=== PATIENT | female | born 1960 | race Caucasian/White ===

== ENCOUNTER 2016-10-31 09:06 | Emergency (ER) | payer OTHER, MEDICAID ==
[~2016-10-31] VITALS: Ht 152.4 cm; Wt 63.5 kg
[~2016-10-31 09:06] MED LIST: ALBUTEROL-200 PUFFS/ IH; AMLODIPINE5 M1 PO; ASPIRIN 81MG TA81 MG PO; BACTRIM DS 8001 TAB PO; CELEXA20 MG PO; CLONIDINE 0.2M0.2 MG PO; DARVOCET-N 1001 EACH PO; FIORICET 325 MG1 TAB PO; FLEXERIL10 MG PO; HYDROCHLOROTHIA25 M1 PO; HYDROXYZINE50 MG PO; KEFLEX 500MG.500 MG PO; LORTAB 5/500 501 TAB PO; LORTAB 500 MG-71 TAB PO; MEDROL 4MG. DOSE4 MG PO; NAPROSYN 500MG500 MG PO; NAPROSYN500 M1 PO; NORCO 325 MG-51 TAB PO; PERCOCET 325 MG1 TA3 PO; PERCOCET 325 MG1 TA4 PO; PREDNISONE 20MG20 MG PO; PROTONIX 40MG T40 MG PO; ROBAXIN-750750 MG PO; SEPTRA DS 800 M1 TAB PO; SIMVASTATIN10 MG PO; SIMVASTATIN20 MG PO; SIMVASTATIN40 MG PO; SYNTHROID 0.0.125 MG PO; TESSALON PERLE100 M1 PO; TESSALON PERLE100 MG PO; VALIUM10 MG PO; VIBRAMYCIN 100100 MG PO; VICODIN 5/500 T1 TAB PO; VOLTAREN75 MG PO; XANAX 1MG TABLET1 MG PO; ZANAFLEX 2MG TAB2 MG PO; ZANAFLEX4 MG PO; ZITHROMAX Z PA250 MG PO; ZOFRAN ODT4 MG PO
[2016-10-31 09:10] VITALS: BP 140/85
--- NOTE | 2016-10-31 09:25 | Emergency Room Report ---
History of Present Illness Time Seen by MD Campbell Presenting Problem in Triage Pt arrived:Walked Presenting Problem:NEEDS MEDICAL CLEARANCE FOR [facility] Onset of symptoms date/time:10/31/16 or onset unknown for: Treatment Prior to Arrival: BLIND EYELETTER Provided by: Sepsis Risk Assessment: Temp: 98.8 B/P: 140/85 MAP: 103 Pulse: 84 Resp: 20 Recent fever? N Clinical Suspician of Infection? N Mental Status: 1 - Regular (Normal Baseline) Sepsis Risk:Low Sepsis Risk Have you (or family members/close friends) recently traveled outside the [place]? N If Yes, where/when: Have you had exposure to infectious disease within the past month? N TB? Other? Specify: Source patient, RN notes reviewed, police, old records Exam Limitations no limitations Comment pt reports using heroin this am and is in police custody - she has no current c/ o Cardiac Chest Pain Chest pain indicative of cardiac No Timing/Duration this morning Severity moderate ALLERGIES Coded Allergies: codeine (Intermediate, I-ITCHING 03/10/15) tramadol (Intermediate, I-ITCHING 03/10/15) Home Medications Active Scripts Ondansetron (Zofran 4MG Odt) 4 MG PO Q6HP PRN NAUSEA AND VOMITING #10 ODT Ref 1 Prov: 05/30/15 OXYCODONE 7.5MG/[id number] (Oxycodon-Acetaminophen 7.5-325) 1 TAB PO QID PRN pain #120 TAB Prov: 06/27/15 Reported Medications Amlodipine Besylate (Amlodipine) 5 MG PO DAILY Levothyroxine Sodium (Synthroid 0.125MG) 0.125 MG PO DAILY Albuterol (Albuterol-Hfa Inhaler) 2 PUFFS IH PRN #1 INH Tizanidine Hydrochloride (Zanaflex 2MG Tab) 4 MG PO DAILY History Medical History General CAD? No Angina: Yes [place]: No Hypertension? Yes Hyperlipidemia? Yes CHF? No DVT? No PE? No COPD? Yes Asthma? No Anemia? No GERD? No Gastric ulcers? No GI Bleed? No Hernia? No Thyroid Problems? Yes Hypothyroidism? Yes CVA? No Seizures? No Diabetes? No End Stage Renal Disease? No UTI? No Stones? No BPH? No GB Disease: No Nephritic Syndrome? No Asplenia? No Hepatitis? No Sickle Cell Disease? No Arthritis? Yes Migraines? No Cataracts? Yes Glaucoma? No MRSA? No HIV? No TB? No Anxiety? No Depression? No Cancer? 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 Respiratory denies cough, denies shortness of breath Cardiovascular denies chest pain, denies syncope Gastrointestinal denies abdominal pain, denies diarrhea, denies vomiting Genitourinary denies: dysuria, frequency, hesitancy, hematuria. Musculoskeletal denies back pain, denies joint pain, denies joint swelling, denies neck pain Skin denies rash Psychiatric/Neurological denies headache, denies seizure Physical Exam Vital Signs Vital Signs Date Time Temp Pulse Resp B/P Pulse O2 O2 Flow FiO2 Ox Delivery Rate 10/31 0910 98.8 84 20 140/85 97 - WBC >12,000 or <4,000 or 10% bands? 2 or more SIRS Criteria Met? B/P:140/85 MAP:103 Creatinine >2.0? UA output<0.5ml/kg/hr for 2 hrs? Platelet count >100,000? Lactate >2.0mmol/1? INR >1.2 or PTT > than 60 sec? Evidence of Organ Dysfunction? Provider documented clinical suspician of infection? N Sepsis Criteria Count: 1 Sepsis Risk: Low Sepsis Risk General Appearance no apparent distress Eye Exam - bilateral eye PERRL, bilateral eye EOMI Ear, Nose, Throat normal ENT inspection Neck supple Respiratory Status No: respiratory distress. Lung Sounds bilateral: lungs clear. 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 No Departure Departure Time of Disposition 919 Disposition DC Home or Self Care(routine) Clinical Impression Primary Impression: Heroin use Secondary Impressions: Medical clearance for incarceration Condition STABLE Patient Instructions DI for Drug Abuse and Drug Addiction Additional Instructions see pcp for follow up Discharge Counseling Counseled pt/family regarding diagnosis, follow up needs ED Critical Care Critical Care No at 0924
--- NOTE | 2016-10-31 09:25 | Emergency Room Report ---
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 N Clinical Suspician of Infection? N Mental Status: 1 - Regular (Normal Baseline) Sepsis Risk:Low Sepsis Risk Have you (or family members/close friends) recently traveled outside the [place]? N If Yes, where/when: Have you had exposure to infectious disease within the past month? N TB? Other? Specify: Source patient, RN notes reviewed, police, old records Exam Limitations no limitations Comment pt reports using heroin this am and is in police custody - she has no current c/ o Cardiac Chest Pain Chest pain indicative of cardiac No Timing/Duration this morning Severity moderate ALLERGIES Coded Allergies: codeine (Intermediate, I-ITCHING 03/10/15) tramadol (Intermediate, I-ITCHING 03/10/15) Home Medications Active Scripts Ondansetron (Zofran 4MG Odt) 4 MG PO Q6HP PRN NAUSEA AND VOMITING #10 ODT Ref 1 Prov: 05/30/15 OXYCODONE 7.5MG/[id number] (Oxycodon-Acetaminophen 7.5-325) 1 TAB PO QID PRN pain #120 TAB Prov: 06/27/15 Reported Medications Amlodipine Besylate (Amlodipine) 5 MG PO DAILY Levothyroxine Sodium (Synthroid 0.125MG) 0.125 MG PO DAILY Albuterol (Albuterol-Hfa Inhaler) 2 PUFFS IH PRN #1 INH Tizanidine Hydrochloride (Zanaflex 2MG Tab) 4 MG PO DAILY History Medical History General CAD? No Angina: Yes [place]: No Hypertension? Yes Hyperlipidemia? Yes CHF? No DVT? No PE? No COPD? Yes Asthma? No Anemia? No GERD? No Gastric ulcers? No GI Bleed? No Hernia? No Thyroid Problems? Yes Hypothyroidism? Yes CVA? No Seizures? No Diabetes? No End Stage Renal Disease? No UTI? No Stones? No BPH? No GB Disease: No Nephritic Syndrome? No Asplenia? No Hepatitis? No Sickle Cell Disease? No Arthritis? Yes Migraines? No Cataracts? Yes Glaucoma? No MRSA? No HIV? No TB? No Anxiety? No Depression? No Cancer? Yes Site: SKIN Immunization Hx DT/Tetanus 09/07/08 Flu 2YRSorMore Pneumonia 12/08/11 Surgical Hx Previous Surgery?Y LEFT FOOT X1 FOREARM SKIN CA REMOVED HYSTERECTOMY PARATHYROID TUBAL LIGATION TEETH EXTRACTION IN [employer] Hx LMP N/A Family History Family Hx Diabetes Yes CAD No Hypertension Yes Hyperlipidemia No Cancer No TB No Social History Smoking Hx Smoker: Never Smoker Tobacco: No Type Cigarettes Packs/day N/A Alcohol Alcohol: No Drugs none Review of Systems All Other Systems Reviewed and Negative Constitutional denies fever Eyes denies drainage ENT denies: ear pain, epistaxis. Respiratory denies cough, denies shortness of breath Cardiovascular denies chest pain, denies syncope Gastrointestinal denies abdominal pain, denies diarrhea, denies vomiting Genitourinary denies: dysuria, frequency, hesitancy, hematuria. Musculoskeletal denies back pain, denies joint pain, denies joint swelling, denies neck pain Skin denies rash Psychiatric/Neurological denies headache, denies seizure Physical Exam Vital Signs Vital Signs Date Time Temp Pulse Resp B/P Pulse O2 O2 Flow FiO2 Ox Delivery Rate 10/31 0910 98.8 84 20 140/85 97 - WBC >12,000 or <4,000 or 10% bands? 2 or more SIRS Criteria Met? B/P:140/85 MAP:103 Creatinine >2.0? UA output<0.5ml/kg/hr for 2 hrs? Platelet count >100,000? Lactate >2.0mmol/1? INR >1.2 or PTT > than 60 sec? Evidence of Organ Dysfunction? Provider documented clinical suspician of infection? N Sepsis Criteria Count: 1 Sepsis Risk: Low Sepsis Risk General Appearance no apparent distress Eye Exam - bilateral eye PERRL, bilateral eye EOMI Ear, Nose, Throat normal ENT inspection Neck supple Respiratory Status No: respiratory distress. Lung Sounds bilateral: lungs clear. 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 No Departure Departure Time of Disposition 919 Disposition DC Home or Self Care(routine) Clinical Impression Primary Impression: Heroin use Secondary Impressions: Medical clearance for incarceration Condition STABLE Patient Instructions DI for Drug Abuse and Drug Addiction Additional Instructions see pcp for follow up Discharge Counseling Counseled pt/family regarding diagnosis, follow up needs ED Critical Care Critical Care No at 0924
== END 2016-10-31 09:30 | disposition home or self-care (01) ==
LOC: ER 09:06
DX: F11.90 Opioid use, unspecified, uncomplicated (principal); Z02.89 Encounter for other administrative examinations